=== PATIENT | female | born 1970 | race Asian ===

== ENCOUNTER 2024-02-27 12:41 | Outpatient (CLI) | payer BC | END 2024-02-27 12:42 | disposition home or self-care (01) | LOC: CSHMAMMO 12:41 | PROVIDERS: ATTEND Internal Medicine | DX: Z12.31 Encounter for screening mammogram for malignant neoplasm of breast (principal); Z80.3 Family history of malignant neoplasm of breast; Z85.6 Personal history of leukemia | CPT/HCPCS: 77063; 77067 ==

== ENCOUNTER → 2024-03-03 | Outpatient (CLI) | payer BC | LOC: CSHMRI 13:55 | PROVIDERS: ATTEND Family Medicine | DX: M17.12 Unilateral primary osteoarthritis, left knee (principal); S83.242A Other tear of medial meniscus, current injury, left knee, initial encounter; M94.262 Chondromalacia, left knee; M25.762 Osteophyte, left knee; M23.8X2 Other internal derangements of left knee; M67.864 Other specified disorders of tendon, left knee ==

== ENCOUNTER 2024-03-09 12:37 | Outpatient (CLI) | payer BC | END 2024-03-09 12:38 | disposition home or self-care (01) | LOC: CSHRAD 12:37 | PROVIDERS: ATTEND Internal Medicine | DX: J40 Bronchitis, not specified as acute or chronic (principal) | CPT/HCPCS: 71046 ==